=== PATIENT | male | born 1945 | race Hispanic/Latino ===

== ENCOUNTER 2023-02-24 10:26 | Outpatient (CLI) | payer MEDICARE | END 2023-02-24 10:27 | disposition home or self-care (01) | LOC: CSHRAD 10:26 | PROVIDERS: ATTEND Student in an Organized Health Care Education/Training Program | DX: R13.10 Dysphagia, unspecified (principal); T17.898A Other foreign object in other parts of respiratory tract causing other injury, initial encounter | CPT/HCPCS: 74220 ==